=== PATIENT | female | born 1950 | race Caucasian/White ===

== ENCOUNTER 2019-03-11 07:30 | Inpatient (IN) | payer MEDICARE, BC ==
[~2019-03-11] VITALS: Ht 154.9 cm; Wt 91.6 kg
[2019-04-21] MEDS ORDERED: LISI10TA4 PO (15:15)
[2019-04-21 15:32] LABS: BASOPHILS # (AUTO) 0.1 X10'3 (0-0.2); BASOPHILS % (AUTO) 0.6 % (0-1); EOSINOPHILS # (AUTO) 0.2 X10'3 (0-0.9); EOSINOPHILS % (AUTO) 2.2 % (0-6); LYMPHOCYTES # (AUTO) 1.7 X10'3 (1.1-4.8); LYMPHOCYTES % (AUTO) 18.9 % (21-51); MEAN CORPUSCULAR HGB CONC 33.5 g/dL (33.0-36.5); MEAN CORPUSCULAR VOLUME 95.4 FL (78-98); MEAN PLATELET VOLUME 7.2 FL (7.4-10.4); MONOCYTES # (AUTO) 0.6 X10'3 (0-0.9); MONOCYTES % (AUTO) 6.7 % (2-12); NEUTROPHILS # (AUTO) 6.4 X10'3 (1.8-7.7); NEUTROPHILS % (AUTO) 71.6 % (42-75); PRE OP HEMATOCRIT 41.9 % (35.0-45.0); PRE OP PLATELET COUNT 295 X10'3 (140-440); RED CELL DISTRIBUTION WIDTH 13.1 % (11.5-14.5)
[2019-04-21 15:50] LABS: ALBUMIN 3.9 G/DL (3.4-5.0); ALBUMIN/GLOBULIN RATIO 1.1 (1.1-1.5); ALKALINE PHOSPHATASE 99 IU/L (46-116); BLOOD UREA NITROGEN 18 MG/DL (7-18); BUN/CREATININE RATIO 23.1 (6.6-38.0); CALCIUM 9.2 MG/DL (8.5-10.1); CHLORIDE 107 MMOL/L (99-107); CREATININE 0.78 MG/DL (0.40-0.90); PRE OP ALT 23 U/L (30-65); PRE OP ANION GAP 10 (8-16); PRE OP AST 16 U/L (10-37); PRE OP BILIRUB, TOTAL 0.4 MG/DL (0.0-1.0); PRE OP GLUCOSE 115 MG/DL (70-104); PRE OP POTASSIUM 3.8 MMOL/L (3.4-5.1); PRE OP SODIUM 143 MMOL/L (135-145); TOTAL CARBON DIOXIDE 26.3 MMOL/L (24-32); TOTAL PROTEIN 7.4 G/DL (6.4-8.2); eGFR 74 ML/MIN
[2019-04-21] MEDS ORDERED: DIGE1TAB PO (16:17)
[2019-04-21] MEDS ORDERED: PRAM0.5T3 PO (16:17)
[2019-04-21] MEDS ORDERED: GABA-530 PO (16:17)
[2019-04-21] MEDS ORDERED: TIZA2TAB5 PO (16:17)
[2019-04-21] MEDS ORDERED: ONDA8TAB6 PO (16:17)
[2019-04-21] MEDS ORDERED: ESTR1TAB19 PO (16:17)
[2019-04-21] MEDS ORDERED: MULT-933 PO (16:17)
[2019-04-21] MEDS ORDERED: ASCO500C15 PO (16:17)
[2019-04-21] MEDS ORDERED: CHOL400T14 PO (16:17)
[2019-04-21] MEDS ORDERED: LACT1CAP65 PO (16:17)
[2019-04-21 16:46] LABS: CLARITY,URINE CLEAR (Clear); COLOR,URINE YELLOW (Yellow); GLUCOSE, URINE NEGATIVE (Neg); KETONES,URINE NEGATIVE (Neg); LEUKOCYTE ESTERASE ,URINE NEGATIVE (Neg); NITRITES, URINE NEGATIVE (Neg); OCCULT BLOOD,URINE NEGATIVE (Neg); PH,URINE 5.5 (4.8-8.0); PROTEIN,URINE NEGATIVE (Neg); UROBILINOGEN,URINE 0.2 E.U/dL (0.2-1.0)
[2019-04-21 16:49] LABS: UA COLLECTION TYPE CLN CATCH MIDSTREAM
[2019-04-29] VITALS (20 sets, daily range): BP systolic 121–174; BP diastolic 46–82
[2019-04-29] MEDS ORDERED: LIDOcaine 1% (10mg/ml) 2ml vial ONE (06:14)
[2019-04-29] MEDS ORDERED: ketorolac trometh. 30mg/ml inj. ONE (07:30)
[2019-04-29] MEDS ORDERED: epiNEPHrine 1 mg/ml inj ONE (07:30)
[2019-04-29] MEDS ORDERED: morphine 10mg/ml inj. ONE (07:31)
[2019-04-29] MEDS ORDERED: Thrombin (Bovine) 5,000 unit vial TP ONE (07:31)
[2019-04-29] MEDS ORDERED: vancomycin 1,000mg inj ONE (07:31)
[2019-04-29] MEDS ORDERED: ROPIVAcaine 0.5% (5mg/ml) 30ml vial ONE (07:31)
[2019-04-29] MEDS ORDERED: ceFAZolin 1000mg inj ONE (07:31)
[2019-04-29] MEDS ORDERED: oxyCODONE SR 10mg (sust. release) tab -2 tabs (20mg) PO ONE (07:45)
[2019-04-29] MEDS ORDERED: famotidine 20mg tablet PO ONE (07:45)
[2019-04-29] MEDS ORDERED: gabapentin 300mg capsule PO ONE (07:45)
[2019-04-29] MEDS ORDERED: tranexamic acid inj. 1,000 MG in normal saline 100 ML IV ONE (07:45)
[2019-04-29] MEDS: [UNRECOGNIZED DRUG - REMARK] PO NR (07:45)
[2019-04-29] MEDS ORDERED: acetaminophen 325mg tablet PO ONE (07:45)
[2019-04-29] MEDS ORDERED: ringers solution, lacted 1,000 ML IV SCH ×2 (07:45→09:29)
[2019-04-29] MEDS ORDERED: CLINDAmcin 900mg/NS 50ml IVPB 50 ML IV ONE (07:45)
[2019-04-29] MEDS ORDERED: metoclopramide 5 mg/ml inj IV ONE (07:45)
[2019-04-29] MEDS ORDERED: propofol 10mg/ml 20ml vial IV ONE (08:16)
[2019-04-29] MEDS ORDERED: tetracaine 1% (10mg/ml) pres. free inj. ONE (08:19)
[2019-04-29] MEDS ORDERED: MIDAZolam 1mg/ml 10ml vial ONE (08:20)
[2019-04-29] MEDS ORDERED: fentaNYL/PF 50MCG/1 ML 2ML syringe ONE (08:20)
[2019-04-29] MEDS ORDERED: calcium chloride 100 MG/1 ML inj IV ONE (09:11)
[2019-04-29] MEDS ORDERED: morphine 4 MG/ML inj SYRINge IV PRN ×2 (09:30)
[2019-04-29] MEDS ORDERED: ondansetron/PF 4mg/2ml inj IV PRN (09:30)
[2019-04-29] MEDS ORDERED: meperidine/PF 25mg/ml syringe IV PRN ×3 (09:30)
[2019-04-29] MEDS ORDERED: acetaminophen 325mg tablet PO PRN (10:30)
[2019-04-29] MEDS ORDERED: diphenhydrAMINE 25mg capsule PO PRN ×2 (10:30)
[2019-04-29] MEDS ORDERED: bisacodyl 10mg suppository rectal RC PRN (10:30)
[2019-04-29] MEDS ORDERED: HYDROmorphone 1 mg/ml syringe IV PRN (10:30)
[2019-04-29] MEDS ORDERED: magnesium hydroxide 30ml (MOM) UD suspension PO PRN (10:30)
--- NOTE | 2019-04-29 10:59 | NUR ---
Received from OR via BED, accompanied by Anesthesiologist DR BURKS and report given by Anesthesiologist. PT DROWSY, DENIES PAIN, RIGHT KNEE W/DRSG, ICE PACK, LEG WRAP, PAPA ARMANI W/GREEN LIGHT ILLUMINATION, CDI. SMITH CATHETER TO GRAVITY DRAINAGE W/YELLOW URINE IN DRAINAGE BAG. Addendum: 04/29/19 at 1125 by Nichole Hooks RN Amended: Links added. Addendum: 04/29/19 at 1126 by Nichole Hooks RN LATE ENTRY- DERMATOME LEVEL T11/T12
[2019-04-29] MEDS: ROPIVAcaine 0.2%/PF PAIN PUMP 550 ML IJ SCH (11:44)
--- NOTE | 2019-04-29 11:50 | NUR ---
Patient report received from Nichole in OR recovery
--- NOTE | 2019-04-29 12:19 | NUR ---
Report called to receiving nurse. Transferred via BED, 1 BAG OF PERSONAL Belongings SENT W/PT TO ROOM 4016A, RECEIVING RN AT BEDSIDE TO RECEIVE PT, PTS AT BEDSIDE. Special Issues communicated to receiving nurse. YES. Addendum: 04/29/19 at 1226 by Nichole Hooks RN Amended: Links added.
[2019-04-29] MEDS ORDERED: gabapentin 300mg capsule PO SCH (13:00)
[2019-04-29] MEDS ORDERED: [UNRECOGNIZED DRUG - OTHER] PO SCH (13:15)
[2019-04-29] MEDS ORDERED: DIGESTIVE PO SCH (13:15)
[2019-04-29] MEDS: acetaminophen 325mg tablet PO SCH ×2 (13:31→19:08)
[2019-04-29] MEDS: oxyCODONE IR 5mg (immed. release) tablet PO PRN ×3 (13:31→21:47)
[2019-04-29] MEDS: ondansetron 4mg rapidly disintigrating tab PO SCH ×3 (13:59→23:45)
[2019-04-29] MEDS ORDERED: tranexamic acid inj. 900 MG in normal saline 100ml IV soln 100 ML IV ONE (14:00)
[2019-04-29] MEDS ORDERED: pramipexole 0.25mg tablet PO SCH (15:00)
[2019-04-29] MEDS: HYDROmorphone inj. 0.5 MG/0.5 ML DISP.SYRIN IV PRN ×2 (15:21→20:17)
[2019-04-29] MEDS: gabapentin 100mg capsule PO SCH ×2 (16:00→23:45)
[2019-04-29] MEDS: potassium cl 20mEq in 1/2 NS 1,000 ML IV SCH (16:19)
[2019-04-29] MEDS ORDERED: TYPE IN GENERIC & BRAND NAME OF PATIENT MED STRENGTH & FORM PO SCH (17:30)
--- NOTE | 2019-04-29 18:17 | NUR ---
Patient report given to Jaci CHANDRA
--- NOTE | 2019-04-29 18:20 | NUR ---
Received report from Carolina CHANDRA. assumed care of patient.
[2019-04-29] MEDS: enoxaparin 30mg/0.3ml syringe SQ SCH (19:09)
[2019-04-29] MEDS ORDERED: vancomycin/NS 1 GM ADD-VANTAGE 250 ML IV SCH (20:00)
[2019-04-29] MEDS: tizanidine 4mg tablet PO SCH (20:13)
[2019-04-29] MEDS: sennosides 8.6mg tablet PO SCH (20:13)
[2019-04-30] VITALS (7 sets, daily range): BP systolic 95–171; BP diastolic 47–68
[2019-04-30] MEDS: potassium cl 20mEq in 1/2 NS 1,000 ML IV SCH ×4 (01:55→14:37)
[2019-04-30] MEDS: acetaminophen 325mg tablet PO SCH ×4 (02:00→20:58)
[2019-04-30] MEDS: oxyCODONE IR 5mg (immed. release) tablet PO PRN (05:25)
--- NOTE | 2019-04-30 06:05 | NUR ---
Gave report to Aicha CHANDRA.
--- NOTE | 2019-04-30 06:14 | NUR ---
received report from jessica bess
[2019-04-30] MEDS: [UNRECOGNIZED DRUG - REMARK] PO NR (06:26)
--- NOTE | 2019-04-30 06:31 | NUR ---
Patient in room ORTHO 4016. I have received report from CORAZON Holcobm and had the opportunity to ask questions and assume patient care.
[2019-04-30 06:57] LABS: BASOPHILS % (AUTO) 0.5 % (0-1); EOSINOPHILS # (AUTO) 0.2 X10'3 (0-0.9); EOSINOPHILS % (AUTO) 2.4 % (0-6); HEMATOCRIT 33.1 % (35.0-45.0); HEMOGLOBIN 11.1 g/dl (12.0-16.0); LYMPHOCYTES # (AUTO) 1.5 X10'3 (1.1-4.8); LYMPHOCYTES % (AUTO) 19.8 % (21-51); MEAN CORPUSCULAR HEMOGLOBIN 32.4 PG (27.0-31.0); MEAN CORPUSCULAR HGB CONC 33.4 g/dL (33.0-36.5); MEAN CORPUSCULAR VOLUME 96.9 FL (78-98); MEAN PLATELET VOLUME 7.8 FL (7.4-10.4); MONOCYTES # (AUTO) 0.7 X10'3 (0-0.9); MONOCYTES % (AUTO) 9.3 % (2-12); NEUTROPHILS # (AUTO) 5.1 X10'3 (1.8-7.7); PLATELET COUNT 250 X10'3 (140-440); RED BLOOD COUNT 3.42 X10'6 (4.20-5.60); RED CELL DISTRIBUTION WIDTH 13.1 % (11.5-14.5); WHITE BLOOD COUNT 7.6 X10'3 (4.5-11.0)
[2019-04-30 07:08] LABS: ANION GAP 5 (8-16); CHLORIDE 107 MMOL/L (99-107); POTASSIUM 3.9 MMOL/L (3.5-5.1); SODIUM 141 MMOL/L (135-145); TOTAL CARBON DIOXIDE 28.7 MMOL/L (24-32)
[2019-04-30] MEDS: ondansetron 4mg rapidly disintigrating tab PO SCH ×2 (07:10→16:22)
--- NOTE | 2019-04-30 07:30 | NUR ---
Patient is very nauseated and has a pain of 9 on a 0-10 scale. Addendum: 04/30/19 at 0809 by Madison NAVARRO Amended: Links added.
[2019-04-30] MEDS ORDERED: pramipexole 0.25mg tablet PO SCH (08:00)
[2019-04-30] MEDS: lactobacillus rhamnosus 10,000 MMU CELLS/CAPSULE PO SCH (08:00)
[2019-04-30] MEDS: cholecalciferol (vitamin D) 400 unit tablet PO SCH (08:00)
[2019-04-30] MEDS: estradiol 1mg tablet PO SCH (08:00)
[2019-04-30] MEDS: lisinopril 10 MG tablet PO SCH (08:00)
[2019-04-30] MEDS: gabapentin 100mg capsule PO SCH ×2 (08:00→16:21)
[2019-04-30] MEDS: ondansetron/PF 4mg/2ml inj IV PRN ×3 (08:02→20:13)
--- NOTE | 2019-04-30 08:33 | NUR ---
Patient is still very nauseated and has a pain of 9. She has received both PO and IV ondansetron and IV hydromorphone for pain. Addendum: 04/30/19 at 0839 by Madison NAVARRO Amended: Links added.
[2019-04-30] MEDS: enoxaparin 30mg/0.3ml syringe SQ SCH ×2 (10:23→20:22)
--- NOTE | 2019-04-30 11:05 | NUR ---
Joint consult: Jack RAIN 100% heart healthy meals meeting needs. LBM 04/29. No nutrition concerns at this time. Will continue to monitor. Addendum: 04/30/19 at [address] Amended: Links added.
--- NOTE | 2019-04-30 11:43 | NUR ---
Problems reprioritized. Patient report given, questions answered & plan of care reviewed with CORAZON Faust.
--- NOTE | 2019-04-30 11:46 | NUR ---
Student documentation: I have reviewed all interventions, assessments performed and documented Madison Thompson. Student Medication Administration: For this medication-pass time frame, all medication were reviewed, dispensed, administered and documented per hospital policy by Madison Thompson.
[2019-04-30] MEDS ORDERED: famotidine/PF 10 mg/ml inj IV PRN (12:30)
[2019-04-30] MEDS: ketorolac tromethamine 15mg/ml inj. IV PRN ×2 (14:02→20:21)
[2019-04-30] MEDS: pramipexole 0.25mg tablet PO SCH ×2 (15:00→15:51)
--- NOTE | 2019-04-30 18:14 | NUR ---
gave report to radha tarango rn
[2019-04-30] MEDS: sennosides 8.6mg tablet PO SCH (20:58)
[2019-04-30] MEDS: tizanidine 4mg tablet PO SCH (20:58)
[2019-05-01] MEDS: ondansetron 4mg rapidly disintigrating tab PO SCH ×3 (00:06→15:05)
[2019-05-01] MEDS: gabapentin 100mg capsule PO SCH ×3 (00:06→15:02)
--- NOTE | 2019-05-01 00:49 | NUR ---
reviewed and edited nursing assessment from RAMONA. Addendum: 05/01/19 at 0059 by Harriet Bernard RN DREW
[2019-05-01] MEDS: acetaminophen 325mg tablet PO SCH ×2 (02:00→07:50)
[2019-05-01] MEDS: potassium cl 20mEq in 1/2 NS 1,000 ML IV SCH (02:26)
[2019-05-01] MEDS: ondansetron/PF 4mg/2ml inj IV PRN ×3 (05:09→21:01)
[2019-05-01] MEDS: ketorolac tromethamine 15mg/ml inj. IV PRN ×2 (05:10→13:28)
[2019-05-01 06:00] VITALS: BP 123/57
--- NOTE | 2019-05-01 06:23 | NUR ---
Problems reprioritized. Patient report given, questions answered & plan of care reviewed with Keanu CHANDRA.
[2019-05-01 06:34] LABS: BASOPHILS % (AUTO) 0.3 % (0-1); EOSINOPHILS # (AUTO) 0.1 X10'3 (0-0.9); EOSINOPHILS % (AUTO) 1.2 % (0-6); HEMATOCRIT 31.7 % (35.0-45.0); HEMOGLOBIN 10.7 g/dl (12.0-16.0); LYMPHOCYTES # (AUTO) 1.1 X10'3 (1.1-4.8); MEAN CORPUSCULAR HEMOGLOBIN 32.3 PG (27.0-31.0); MEAN CORPUSCULAR HGB CONC 33.7 g/dL (33.0-36.5); MEAN CORPUSCULAR VOLUME 95.9 FL (78-98); MEAN PLATELET VOLUME 7.5 FL (7.4-10.4); MONOCYTES # (AUTO) 0.7 X10'3 (0-0.9); MONOCYTES % (AUTO) 9.1 % (2-12); NEUTROPHILS # (AUTO) 5.9 X10'3 (1.8-7.7); NEUTROPHILS % (AUTO) 75.4 % (42-75); PLATELET COUNT 231 X10'3 (140-440); RED BLOOD COUNT 3.31 X10'6 (4.20-5.60); RED CELL DISTRIBUTION WIDTH 12.8 % (11.5-14.5); WHITE BLOOD COUNT 7.8 X10'3 (4.5-11.0)
--- NOTE | 2019-05-01 06:37 | NUR ---
Patient in room ORTHO 4016. I have received report from Harriet CHANDRA and had the opportunity to ask questions and assume patient care.
[2019-05-01] MEDS: lactobacillus rhamnosus 10,000 MMU CELLS/CAPSULE PO SCH (07:50)
[2019-05-01] MEDS: estradiol 1mg tablet PO SCH (07:52)
[2019-05-01] MEDS: cholecalciferol (vitamin D) 400 unit tablet PO SCH (07:52)
[2019-05-01] MEDS: lisinopril 10 MG tablet PO SCH (07:53)
[2019-05-01] MEDS: enoxaparin 30mg/0.3ml syringe SQ SCH ×2 (07:54→20:32)
[2019-05-01] MEDS: oxyCODONE IR 5mg (immed. release) tablet PO PRN (08:38)
[2019-05-01 09:40] VITALS: BP 138/64
[2019-05-01] MEDS ORDERED: acetaminophen 325mg tablet PO PRN (10:30)
[2019-05-01] MEDS: ROPIVAcaine 0.2%/PF PAIN PUMP 550 ML IJ SCH (11:00)
[2019-05-01] MEDS: pramipexole 0.25mg tablet PO SCH (15:01)
[2019-05-01 18:00] VITALS: BP 134/68
--- NOTE | 2019-05-01 18:21 | NUR ---
Problems reprioritized. Patient report given, questions answered & plan of care reviewed with Harriet CHANDRA.
[2019-05-01] MEDS: sennosides 8.6mg tablet PO SCH (20:31)
[2019-05-01] MEDS: famotidine 20mg tablet PO SCH (20:31)
[2019-05-01] MEDS: tizanidine 4mg tablet PO SCH (20:32)
[2019-05-02] MEDS: gabapentin 100mg capsule PO SCH
--- NOTE | 2019-05-02 03:49 | NUR ---
Reviewed and agree with SRN assessment.
[2019-05-02] MEDS: ondansetron/PF 4mg/2ml inj IV PRN ×2 (05:39→11:22)
[2019-05-02] MEDS: oxyCODONE IR 5mg (immed. release) tablet PO PRN (05:40)
--- NOTE | 2019-05-02 06:09 | NUR ---
Problems reprioritized. Patient report given, questions answered & plan of care reviewed with CORAZON Figueroa.
[2019-05-02 06:30] VITALS: BP 124/65
--- NOTE | 2019-05-02 06:30 | NUR ---
Patient in room ORTHO 4016. I have received report from Harriet Aranda RN and had the opportunity to ask questions and assume patient care.
[2019-05-02 07:10] LABS: BASOPHILS % (AUTO) 0.6 % (0-1); EOSINOPHILS # (AUTO) 0.2 X10'3 (0-0.9); HEMATOCRIT 28.5 % (35.0-45.0); HEMOGLOBIN 9.7 g/dl (12.0-16.0); LYMPHOCYTES # (AUTO) 1.1 X10'3 (1.1-4.8); LYMPHOCYTES % (AUTO) 13.9 % (21-51); MEAN CORPUSCULAR HEMOGLOBIN 32.8 PG (27.0-31.0); MEAN CORPUSCULAR HGB CONC 34.1 g/dL (33.0-36.5); MEAN CORPUSCULAR VOLUME 96.2 FL (78-98); MEAN PLATELET VOLUME 7.5 FL (7.4-10.4); MONOCYTES # (AUTO) 0.8 X10'3 (0-0.9); MONOCYTES % (AUTO) 9.3 % (2-12); NEUTROPHILS # (AUTO) 6.1 X10'3 (1.8-7.7); NEUTROPHILS % (AUTO) 74.2 % (42-75); PLATELET COUNT 223 X10'3 (140-440); RED BLOOD COUNT 2.97 X10'6 (4.20-5.60); RED CELL DISTRIBUTION WIDTH 12.7 % (11.5-14.5); WHITE BLOOD COUNT 8.2 X10'3 (4.5-11.0)
[2019-05-02] MEDS: enoxaparin 30mg/0.3ml syringe SQ SCH (07:54)
[2019-05-02] MEDS: famotidine 20mg tablet PO SCH (07:54)
[2019-05-02] MEDS: ondansetron 4mg rapidly disintigrating tab PO SCH ×2 (07:54)
[2019-05-02 10:00] VITALS: BP 167/79
--- NOTE | 2019-05-02 11:55 | NUR ---
Patient discharged at this time. She didn't have noah of her AM medications because she was nauseated and vomiting. She refued to take them later in day. She stated the only thing that works for nausea is zofran and cannot take compaziine or anything else because of drug allergies.
== END 2019-05-02 11:50 | disposition home health service (06) | DRG 470 ==
LOC: EDSTATUS 07:30 → PAS IN 04-29 05:53 → EDSTATUS 04-29 08:30 → ORTHO 4S 04-29 12:20
PROVIDERS: ADMIT Orthopaedic Surgery; ATTEND Orthopaedic Surgery
PROC: 3E0T3BZ Introduction of Anesthetic Agent into Peripheral Nerves and Plexi, Percutaneous Approach (ICD-10-PCS; 2019-04-29)
PROC: 8E0YXCZ Robotic Assisted Procedure of Lower Extremity (ICD-10-PCS; 2019-04-29)
PROC: 0SRC069 Replacement of Right Knee Joint with Oxidized Zirconium on Polyethylene Synthetic Substitute, Cemented, Open Approach (ICD-10-PCS; principal; 2019-04-29 08:16)
DX: M17.11 Unilateral primary osteoarthritis, right knee (principal); D62 Acute posthemorrhagic anemia; I10 Essential (primary) hypertension; M79.7 Fibromyalgia; E66.9 Obesity, unspecified; Z68.38 Body mass index [BMI] 38.0-38.9, adult; Y93.89 Activity, other specified; Y92.238 Other place in hospital as the place of occurrence of the external cause; Y99.8 Other external cause status; W06.XXXA Fall from bed, initial encounter; Z79.899 Other long term (current) drug therapy
CPT/HCPCS: 36415; 80051; 80053; 81003; 82948; 85025; 87081; 93005; 97110; 97116; 97161; 97530; A4215; A6454; A7000; C1713; C1758; C1776; G0378; J0171; J0690; J1170; J1650; J1885; J2001; J2250; J2270; J2405; J2704; J2765; J2795; J3010; J3370; J3480; J3490; J7120; Q0163

== ENCOUNTER 2021-05-17 07:44 | Inpatient (IN) | payer MEDICARE, BC ==
[2021-05-11 15:27] LABS: BASOPHILS # (AUTO) 0.1 X10'3 (0-0.2); BASOPHILS % (AUTO) 0.9 % (0-1); EOSINOPHILS # (AUTO) 0.2 X10'3 (0-0.9); EOSINOPHILS % (AUTO) 2.1 % (0-6); LYMPHOCYTES # (AUTO) 1.7 X10'3 (1.1-4.8); LYMPHOCYTES % (AUTO) 20.5 % (21-51); MEAN CORPUSCULAR HEMOGLOBIN 31.8 PG (27.0-31.0); MEAN CORPUSCULAR HGB CONC 33.3 g/dL (33.0-36.5); MEAN CORPUSCULAR VOLUME 95.3 FL (78-98); MEAN PLATELET VOLUME 7.5 FL (7.4-10.4); MONOCYTES # (AUTO) 0.6 X10'3 (0-0.9); MONOCYTES % (AUTO) 6.9 % (2-12); NEUTROPHILS # (AUTO) 5.9 X10'3 (1.8-7.7); NEUTROPHILS % (AUTO) 69.6 % (42-75); PRE OP HEMATOCRIT 37.2 % (35.0-45.0); PRE OP HEMOGLOBIN 12.4 g/dL (12.0-16.0); PRE OP PLATELET COUNT 397 X10'3 (140-440); RED CELL DISTRIBUTION WIDTH 13.4 % (11.5-14.5)
[2021-05-11 15:43] LABS: ALBUMIN 3.9 G/DL (3.4-5.0); ALBUMIN/GLOBULIN RATIO 1.1 (1.1-1.5); ALKALINE PHOSPHATASE 100 IU/L (46-116); BLOOD UREA NITROGEN 19 MG/DL (7-18); BUN/CREATININE RATIO 20.4 (6.6-38.0); CALCIUM 9.6 MG/DL (8.5-10.1); CHLORIDE 104 MMOL/L (99-107); CREATININE 0.93 MG/DL (0.40-0.90); PRE OP ALT 21 U/L (30-65); PRE OP ANION GAP 6 (8-16); PRE OP AST 17 U/L (10-37); PRE OP BILIRUB, TOTAL 0.5 MG/DL (0.0-1.0); PRE OP GLUCOSE 90 MG/DL (70-104); PRE OP POTASSIUM 4.8 MMOL/L (3.4-5.1); PRE OP SODIUM 142 MMOL/L (135-145); TOTAL CARBON DIOXIDE 31.6 MMOL/L (24-32); TOTAL PROTEIN 7.5 G/DL (6.4-8.2); eGFR 60 ML/MIN
[2021-05-17] VITALS (21 sets, daily range): BP systolic 99–152; BP diastolic 47–87
[~2021-05-17] VITALS: Ht 154.9 cm; Wt 88.0 kg
[~2021-05-17 07:44] MED LIST: DICL25TA10 PO; ESTR1TAB19 PO; GABA-530 PO; LISI10TA27 PO; PRAM0.5T3 PO; TIZA-189 PO; clindamycin-Cleocin 900mg/D5W 50 ML IV ONE; famotidine 20mg tablet PO ONE; ringers solution, lacted 1,000 ML IV SCH; scopolamine 1mg/72 hr patch TD SCH; vancomycin 1,500 MG in NS 300ml IV soln IV ONE
[2021-05-17] MEDS ORDERED: tetracaine 1% (10mg/ml) pres. free inj. ONE (11:25)
[2021-05-17] MEDS ORDERED: fentaNYL/PF 50MCG/1 ML 2ML syringe ONE (11:27)
[2021-05-17] MEDS ORDERED: MIDAZolam 1mg/ml 10ml vial ONE (11:27)
[2021-05-17] MEDS ORDERED: vancomycin 1,000mg inj ONE (11:34)
[2021-05-17] MEDS ORDERED: TRANEXAMIC ACID 1 GM IN NACL,ISO-OS 100 ML IV ONE (11:35)
[2021-05-17] MEDS ORDERED: ROPIVACAINE IU ONE ×5 (11:40)
[2021-05-17] MEDS ORDERED: [UNRECOGNIZED DRUG - OTHER] IU ONE ×5 (11:40)
[2021-05-17] MEDS ORDERED: EPINEPHRINE IU ONE ×5 (11:40)
[2021-05-17] MEDS ORDERED: KETOROLAC IU ONE ×5 (11:40)
[2021-05-17] MEDS ORDERED: ondansetron/PF 4mg/2ml inj ONE (12:13)
[2021-05-17] MEDS ORDERED: ROPIVAcaine 0.5% (5mg/ml) 30ml vial ONE (12:13)
[2021-05-17] MEDS ORDERED: propofol inj 20 ML IV ONE ×2 (12:13)
[2021-05-17] MEDS ORDERED: LIDOcaine 2% (20mg/ml) 5ml vial ONE (12:13)
[2021-05-17] MEDS ORDERED: ROPIVAcaine 0.2% (10 MG/5 ML) BOLUS INJECTION ADDCANAL PRN (12:25)
[2021-05-17] MEDS ORDERED: fentaNYL/PF 50MCG/1 ML 2ML syringe IV PRN ×2 (12:25)
[2021-05-17] MEDS ORDERED: hydrALAZINE 20mg/ml inj. IV PRN (12:25)
[2021-05-17] MEDS ORDERED: labetalol 20mg/4ml (5mg/ml) syringe IV PRN (12:25)
[2021-05-17] MEDS ORDERED: ondansetron/PF 4mg/2ml inj IV PRN ×3 (12:25→14:25)
[2021-05-17] MEDS ORDERED: morphine 4 MG/ML inj SYRINge IV PRN ×2 (12:25→14:50)
[2021-05-17] MEDS ORDERED: proMETHazine 25mg rectal suppository RC PRN (12:25)
[2021-05-17] MEDS ORDERED: ringers solution, lacted 1,000 ML IV SCH (12:25)
[2021-05-17] MEDS ORDERED: morphine 2 MG/ML inj. syringe IV PRN ×2 (12:25→14:50)
[2021-05-17] MEDS ORDERED: ROPIVAcaine 0.2%/PF PUMP/bolus 545 ML ADDCANAL SCH (13:00)
[2021-05-17] MEDS ORDERED: diphenhydrAMINE 25mg capsule PO PRN ×4 (14:10→14:25)
[2021-05-17] MEDS ORDERED: bisacodyl 10mg suppository rectal RC PRN ×2 (14:10→14:25)
[2021-05-17] MEDS ORDERED: acetaminophen 325mg tablet PO PRN ×2 (14:10→14:25)
[2021-05-17] MEDS ORDERED: magnesium hydroxide 30ml (MOM) UD suspension PO PRN ×2 (14:10→14:25)
--- NOTE | 2021-05-17 14:12 | NUR ---
Received from OR via MED SURG BED , accompanied by Anesthesiologist LAYA and report given by Anesthesiolgist.PATIENT WITH 20G PIV IN RIGHT UE RUNNING LR AT 100. DENIES PAIN AT THIS TIME 2' SPINAL ANESETHESIA- T9 SENSATION LEVEL AT THIS TIME. SMITH CATHETER PRESENT AND HAS CLEAR YELLOW URINE PRESENT. + DP TO LEFT FOOT. KNEE WRAP AND POWDER PACK PRESENT WELL NERVE BLOCK SITE TO LEFT THIGH AREA. VSS. 10L MASK ON WITH 100% AT THIS TIME. Addendum: 05/17/21 at 1429 by Prateek Rowe RN, RN Amended: Links added.
[2021-05-17] MEDS ORDERED: HYDROcodone/acetaminophen 10/325mg tab PO PRN (14:25)
--- NOTE | 2021-05-17 15:22 | NUR ---
Report called to receiving nurse. Transferred via SURGICAL BED WITH ONE BAG OF Belongings. Special Issues communicated to receiving nurse MARTHA. VSS.DENIES PAIN.SPINAL INTACT. LEFT KNEE DRESSING INSPECTED WITH RN AT BEDSIDE. NO DRAINAGE PRESENT. BED LOW. CALL LIGHT PRESENT AND RN PRESENT TO ACCEPT CARE. Addendum: 05/17/21 at 1602 by Prateek Rowe RN RN Amended: Links added.
--- NOTE | 2021-05-17 15:30 | NUR ---
I have received report from Prateek CHANDRAdeck worker and had the opportunity to ask questions and will assume patient care once to 355B.
--- NOTE | 2021-05-17 15:40 | NUR ---
Pt arrived to floor via hospital bed, to room 355B. Pt A&Ox4, no s/sx distress, no c/o at this time. VSS. Pt assessed per flowsheet. Pt and family oriented to room and POC. S/P L Total Arthroplasty, dressing CDI. Pt reeducated and demonstrates proper use of OnQ for pain management. F/C patent, secure, with clear yellow urine draining to gravity. PIV to R wrist patent infusing LR at 100cc/hr. Will continue to monitor.
[2021-05-17] MEDS: gabapentin 100mg capsule PO SCH (17:08)
[2021-05-17] MEDS: potassium cl 20mEq in 1/2 NS 1,000 ML IV SCH (17:09)
--- NOTE | 2021-05-17 17:15 | NUR ---
Pt states she had medications approximately 1100 today and sometime afterward her face turned red, but shortly after it disappeared. Srinivas CHANDRA notified. Meds reviewed that were given in preop and OR with Vanco and Clindamycin noted. Srinivas CHANDRA thought it was "red man syndrome" and to pass on to NOC shift to give Vanco at a slower rate. Will continue to monitor.
--- NOTE | 2021-05-17 17:19 | NUR ---
Message sent to Pharmacy: please clear all preop and recovery room meds from emar. Also, still waiting for 1600 Ancef. Thank you! Yenni
[2021-05-17] MEDS: ceFAZolin/D5W- 1GM premix 50 ML IV SCH (17:33)
--- NOTE | 2021-05-17 18:55 | NUR ---
Problems reprioritized. Patient report given, questions answered & plan of care reviewed with Kerri CHANDRA.
[2021-05-17] MEDS ORDERED: vancomycin/NS 1 GM ADD-VANTAGE 250 ML IV SCH (20:00)
[2021-05-17] MEDS ORDERED: sennosides 8.6mg tablet PO SCH ×2 (21:00)
[2021-05-17] MEDS ORDERED: tizanidine 4mg tablet PO PRN (21:00)
[2021-05-17] MEDS: acetaminophen 325mg tablet PO SCH (21:07)
[2021-05-18] VITALS: BP 99/54
[2021-05-18] MEDS: ceFAZolin/D5W- 1GM premix 50 ML IV SCH
[2021-05-18] MEDS: gabapentin 100mg capsule PO SCH ×2 (00:43→08:13)
--- NOTE | 2021-05-18 01:05 | NUR ---
Pt is allergic to Ancef. She had an allergic reaction and was itchy all over her body including her scalp. Dr. Boo was called and he ordered that the pt is to receive the Vanco only.
[2021-05-18] MEDS: acetaminophen 325mg tablet PO SCH ×2 (02:00→08:18)
[2021-05-18] MEDS: potassium cl 20mEq in 1/2 NS 1,000 ML IV SCH ×2 (05:40→06:25)
--- NOTE | 2021-05-18 06:29 | NUR ---
Problems reprioritized. Patient report given, questions answered & plan of care reviewed with CORAZON Bobo.
--- NOTE | 2021-05-18 06:30 | NUR ---
Patient in room [facility] 355. I have received report from CORAZON Manning and had the opportunity to ask questions and assume patient care.
[2021-05-18] MEDS: HYDROcodone/acetaminophen 10/325mg tab PO PRN ×2 (06:40→11:08)
[2021-05-18 06:53] LABS: ANION GAP 9 (8-16); CHLORIDE 102 MMOL/L (99-107); SODIUM 136 MMOL/L (135-145); TOTAL CARBON DIOXIDE 25.4 MMOL/L (24-32)
[2021-05-18 06:57] LABS: BASOPHILS % (AUTO) 0.5 % (0-1); EOSINOPHILS # (AUTO) 0.3 X10'3 (0-0.9); EOSINOPHILS % (AUTO) 3.6 % (0-6); HEMATOCRIT 31.8 % (35.0-45.0); HEMOGLOBIN 10.5 g/dl (12.0-16.0); LYMPHOCYTES # (AUTO) 1.5 X10'3 (1.1-4.8); LYMPHOCYTES % (AUTO) 16.6 % (21-51); MEAN CORPUSCULAR HEMOGLOBIN 31.3 PG (27.0-31.0); MEAN CORPUSCULAR HGB CONC 32.9 g/dL (33.0-36.5); MEAN CORPUSCULAR VOLUME 94.9 FL (78-98); MEAN PLATELET VOLUME 7.8 FL (7.4-10.4); MONOCYTES # (AUTO) 0.8 X10'3 (0-0.9); MONOCYTES % (AUTO) 8.3 % (2-12); NEUTROPHILS # (AUTO) 6.5 X10'3 (1.8-7.7); PLATELET COUNT 268 X10'3 (140-440); RED BLOOD COUNT 3.35 X10'6 (4.20-5.60); RED CELL DISTRIBUTION WIDTH 13.1 % (11.5-14.5); WHITE BLOOD COUNT 9.2 X10'3 (4.5-11.0)
[2021-05-18 07:00] VITALS: BP 154/70
[2021-05-18] MEDS ORDERED: pramipexole 0.25mg tablet PO SCH (08:00)
[2021-05-18] MEDS ORDERED: lisinopril 10 MG tablet PO SCH (08:00)
[2021-05-18] MEDS ORDERED: estradiol 1mg tablet PO SCH (08:00)
--- NOTE | 2021-05-18 09:22 | NUR ---
FC DC'd at 0915 per written orders. 450cc's clear yellow urine drained. Pt tolerated well. Assisted up to bathroom after FC DC. Will continue to monitor.
--- NOTE | 2021-05-18 10:25 | NUR ---
Reassessment for 2mg morphine given at 0238 not done. Given on prior shift, this RN was not present for reassessment.
[2021-05-18 10:52] VITALS: BP 120/55
--- NOTE | 2021-05-18 11:20 | NUR ---
Dressing to left knee changed per Dr Boo's verbal order. Moderate sanguinous drainage noted. Pt tolerated well. Powder cold pack reapplied. Will continue to monitor.
--- NOTE | 2021-05-18 12:03 | NUR ---
Joint Surgery Consult: Pt s/p L knee surgery this admit. Pt/ seen by JANNET for written/verbal high protein ed w/ RD contact information provided. JANNET encouraged pt/ to contact dietitian's office if further questions/concerns. Addendum: 05/18/21 at [address] Amended: Links added.
[2021-05-18] MEDS ORDERED: ASPI-1264 PO (12:06)
[2021-05-18] MEDS ORDERED: ENOX30SY10 SQ (12:06)
[2021-05-18] MEDS ORDERED: HYDR-3972 PO (12:06)
--- NOTE | 2021-05-18 14:10 | NUR ---
Pt discharged to home with all belongings, in private vehicle, accompanied by . Discharge instructions and medications reviewed. New prescriptions e-scripted to [facility] on [address] Dressing changed prior to discharge and powder cold packs sent home with patient. Pt instructed to follow up with Dr Boo in 2 weeks and to notify him with any concerns. Signs/symptoms of infection reviewed with pt and , as well as signs/symptoms of PE. Pt instructed to continue exercises at home as taught by physical therapy. Pt and stated understanding and willingness to comply with all discharge instructions. IV DC'd, cannula intact. Pt escorted to front [facility] via wheelchair by student RN.
[2021-05-18] MEDS ORDERED: celeCOXIB 100mg capsule PO SCH (20:00)
[2021-05-19] MEDS ORDERED: acetaminophen 325mg tablet PO PRN (14:25)
== END 2021-05-18 14:10 | disposition home or self-care (01) | DRG 470 ==
LOC: PAS IN 07:44 → UNDOADMIN 07:44 → PAS IN 14:22 → UNDOADMIN 14:22 → PAS IN 14:32 → SUR 3N 15:40 → PAS IN 15:40
PROVIDERS: ADMIT Orthopaedic Surgery; ATTEND Orthopaedic Surgery
PROC: 3E0T3BZ Introduction of Anesthetic Agent into Peripheral Nerves and Plexi, Percutaneous Approach (ICD-10-PCS; 2021-05-17)
PROC: 3E0T33Z Introduction of Anti-inflammatory into Peripheral Nerves and Plexi, Percutaneous Approach (ICD-10-PCS; 2021-05-17)
PROC: 0SRD0J9 Replacement of Left Knee Joint with Synthetic Substitute, Cemented, Open Approach (ICD-10-PCS; principal; 2021-05-17 11:17)
DX: M17.12 Unilateral primary osteoarthritis, left knee (principal); D62 Acute posthemorrhagic anemia; I10 Essential (primary) hypertension; E66.9 Obesity, unspecified; Z79.899 Other long term (current) drug therapy; Z79.82 Long term (current) use of aspirin; Z68.36 Body mass index [BMI] 36.0-36.9, adult
CPT/HCPCS: 36415; 73560; 80051; 80053; 82948; 85025; 87081; 93005; 97110; 97116; 97161; A4215; A7000; C1713; C1758; C1776; C9520; G0378; J0690; J2001; J2250; J2270; J2405; J2704; J2795; J3010; J3370; J3480; J3490; J7040; J7120; Q0163; U0003; U0005

== ENCOUNTER 2021-05-24 15:19 | Emergency (ER) | payer MEDICARE, BC ==
[~2021-05-24] VITALS: Ht 154.9 cm; Wt 82.3 kg
[~2021-05-24 15:19] MED LIST changes: +ASPI-1264 PO; +ENOX30SY10 SQ; +HYDR-3972 PO; -clindamycin-Cleocin 900mg/D5W 50 ML IV ONE; -famotidine 20mg tablet PO ONE; -ringers solution, lacted 1,000 ML IV SCH; -scopolamine 1mg/72 hr patch TD SCH; -vancomycin 1,500 MG in NS 300ml IV soln IV ONE
[2021-05-24 15:21] VITALS: BP 188/71
== END 2021-05-24 19:05 | disposition home or self-care (01) ==
LOC: ER 15:19
DX: M25.562 Pain in left knee (principal); M25.462 Effusion, left knee; Z88.0 Allergy status to penicillin; Z88.1 Allergy status to other antibiotic agents
CPT/HCPCS: 93971; 99284